=== PATIENT | female | born 1965 | race Caucasian/White ===

== ENCOUNTER → 2020-01-06 | Outpatient (CLI) | payer OTHER, SELFPAY ==
[2020-01-09 21:05] LABS: HPV Reflexed? NOT INDICATED
== END | disposition home or self-care (01) ==
LOC: LABSPEC 12:32
PROVIDERS: PCP Family Medicine; Referring Provider Nurse Practitioner; Visit Provider Nurse Practitioner
DX: Z01.419 Encounter for gynecological examination (general) (routine) without abnormal findings (principal)
CPT/HCPCS: 88175; G0145

== ENCOUNTER → 2020-01-13 10:14 | Outpatient (CLI) | payer SELFPAY ==
--- NOTE | 2020-01-13 10:20 | BI_ITS ---
MAMMOGRAPHY - UNILATERAL SCREENING: LEFT BREAST REASON FOR EXAM: Female, 54 years old. Routine annual screening examination (unilateral). PERTINENT HISTORY: Personal history of breast cancer. Prior right mastectomy. TECHNIQUE: Digital unilateral breast negro (3D mammographic acquisition) in the CC and MLO projections. 2-D mediolateral oblique (MLO) and craniocaudad (CC) views of both breasts were obtained. CAD: Full Field Digital Mammography with Computer Added Detection was performed. COMPARISON: Comparison is made with prior examination dated November 28, 2014. FINDINGS: Breast Composition: There are scattered areas of fibroglandular density. The previously seen 1 cm nodule in the upper outer aspect of the left breast as decreased in size. It presently measures 0.7 cm. A tissue clip marker is seen within it. No other significant abnormalities are identified. BI/SCREEN MAMM (CAD) W/NEGRO UNI L IMPRESSION: Status post right mastectomy. Interval decrease in size of the previously seen nodular density in the upper outer aspect of the left breast. A tissue clip marker is seen within. ASSESSMENT CATEGORY: BIRADS Category 0: Incomplete. Need additional imaging evaluation. A letter regarding these results will be sent to the patient by the facility within 30 days. Approximately 10% of breast cancers are not detected by mammography. A normal mammogram should not delay biopsy of a clinically suspicious abnormality. [id number] Electronically Signed: Durga Rubi, at 12:27 EDT , Service support ,
== END ==
PROVIDERS: PCP Nurse Practitioner; Referring Provider Nurse Practitioner; Visit Provider Nurse Practitioner
DX: Z12.31 Encounter for screening mammogram for malignant neoplasm of breast (principal)
CPT/HCPCS: 77063; 77067

== ENCOUNTER → 2020-01-23 07:53 | Outpatient (CLI) | payer SELFPAY ==
--- NOTE | 2020-01-23 08:30 | PET_ITS ---
EXAMINATION: FDG PET CT INDICATIONS: A 54-year-old female with reported history of carcinoma of the breast presenting for restaging examination. COMPARISON EXAMINATION: Conventional mammogram report dated 01/13/20. INDEX LESION SIZE SUV INTERPRETATION Mediastinal structures-aorticopulmonary window 30.1 mm largest (frame 204) 6.8 (max) Fulfills quantitative criteria for viable neoplasm Bilateral anterior neck 14.2 mm largest (frame 227) 4.7 (max) Fulfills quantitative criteria for viable neoplasm Appendicular, axial skeletal structures 4.3 (max) Fulfills quantitative criteria for viable osseous neoplasm TECHNIQUE: Following the intravenous administration of 17.2 mCi of F-18 deoxyglucose via the left antecubital fossa, multiplanar image acquisitions of the neck, chest, abdomen and pelvis to level of mid thigh, obtained at one hour post radiopharmaceutical administration contemporaneously interpreted with the current CT of the neck, chest, abdomen and pelvis to level of mid thigh, dated 01/23/20 via coregistration and conventional mammogram report dated 01/13/20 reveal: SERUM GLUCOSE LEVEL: 113 mg/dl. HEIGHT: 60 inches. WEIGHT: 147 lbs. FINDINGS: 1. Multifocal increased glucose metabolism is identified in the superior, carinal level mediastinum and region of the aorticopulmonary window. The calculated maximum standard uptake value is 6.8. The maximal axial diameter of the largest individual hypermetabolic soft tissue density on review of CT of the chest dated 01/23/20 is 30.1 mm (transverse). 2. Enhanced fluorine-labeled glucose uptake is defined in the right anterior neck involving level , left anterior neck involving level IV. The calculated maximum standard uptake value is 4.7. The maximal axial diameter of the largest individual hypermetabolic soft tissue density on review of CT of the neck-chest dated 01/23/20 is 14.2 mm (AP). 3. Innumerable foci of increased FDG concentration are noted in the appendicular and axial skeletal structures, too many to individually articulate registering a calculated maximum standard uptake value of 4.3. 4. Normal physiologic distribution of the radiopharmaceutical is apparent in the hepatic (2.8) and splenic parenchyma, both renal units, bladder and visualized intestinal tract. There is uniform distribution of the radiopharmaceutical concentration defined in the visualized cerebellar hemispheres and cerebral cortical structures. Diffuse intestinal tract activity is noted throughout all four quadrants of the abdominal-pelvic retroperitoneum and mesentery consistent with normal physiologic distribution of the radiopharmaceutical. Pertinent CT findings are as follows. CHEST: Atherosclerotic calcification is defined in the thoracic aorta without evidence of dilatation, aneurysm formation. Coronary arterial calcification is observed. The right breast is surgically absent. Bilateral subcentimeter axillary soft tissue densities are non-glucose avid. There are no parenchymal densities-nodules defined in the right and left hemithorax manifesting quantitatively significant increased FDG concentration. ABDOMEN AND PELVIS: There is fatty metamorphosis demonstrated in the hepatic parenchyma. Right and left inguinal soft tissue densities are ametabolic. The uterus is prominent in size without evidence of quantitatively significant increased FDG distribution. Colonic diverticulosis is identified. SKELETAL: Degenerative changes defined in the cervical, thoracic and lumbar spine demonstrate no evidence of glucose hypermetabolism. PET/PET/CT Tumor Base -Thigh Init IMPRESSION: 1. 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 2. Increased fluorine-labeled glucose uptake identified in the mediastinal structures fulfills quantitative criteria for viable neoplasm. 3. Enhanced tracer concentration observed in the bilateral anterior neck fulfills quantitative criteria for viable metastatic disease. 4. Facilitated FDG uptake is noted in the appendicular and axial skeletal structures fulfills quantitative criteria for viable osseous metastasis. (Arturo sherman al, Clinical Nuclear Medicine 29:161, 2004). Electronic Signature Juan Antonio Meeks D.O. Electronically Signed: Juan Antonio Meeks DO at 23:18 EDT Tel , Service support ,
== END ==
PROVIDERS: PCP Nurse Practitioner; Referring Provider Nurse Practitioner; Visit Provider Nurse Practitioner
DX: C50.919 Malignant neoplasm of unspecified site of unspecified female breast (principal)
CPT/HCPCS: 78815; A9552

== ENCOUNTER → 2020-05-15 14:50 | Outpatient (CLI) | payer SELFPAY ==
--- NOTE | 2020-05-15 15:00 | PET_ITS ---
EXAMINATION: FDG PET-CT INDICATIONS: A 55-year-old female with history of carcinoma of the breast presenting for restaging examination. COMPARISON EXAMINATION: FDG PET study dated 01/23/2020 INDEX LESION SIZE SUV INTERPRETATION PERSISTENT and NEW: mediastinal structures 32.2-mm (largest) (frame 186) comp. to 30.1-mm (01/23/20) 15.5 (max) comp. to 6.8 (01/23/20) Fulfills quantitative criteria for viable neoplasm, interim metabolic progression PERSISTENT and NEW: bilateral-lateral and anterior neck 21.3-mm (largest) (frame 219) comp. to 14.2-mm (01/23/20) 14.7 (max) comp. to 4.7 (01/23/20) Fulfills quantitative criteria for viable neoplasm, interim metabolic progression PERSISTENT and NEW: appendicular, axial skeletal structures, skull base 17.4 (max) comp. to 4.3 (01/23/20) Fulfills quantitative criteria for viable neoplasm, interim metabolic progression NEW: left and right lobe hepatic parenchyma (n=multiple) 14.8-mm (largest) (frame 161) 8.4 (max) ratio > 2.0 Fulfills quantitative criteria for viable neoplasm, interim metabolic progression TECHNIQUE: Following the intravenous administration of 14.8 mCi of F-18 deoxyglucose via the left antecubital fossa, multiplanar image acquisitions of the neck, chest, abdomen and pelvis to level of mid thigh, obtained at one hour post radiopharmaceutical administration contemporaneously interpreted with the current CT of the neck, chest, abdomen and pelvis, to level of mid thigh, dated 05/15/2020 via coregistration and FDG PET study dated 01/23/2020 reveals: BLOOD GLUCOSE LEVEL:?? 96 mg/dl?HEIGHT:?60 inches?WEIGHT: 128 lbs. FINDINGS: 1. Redefined and newly apparent increased glucose metabolism is multifocally apparent in the superior-subcarinal mediastinum generating a current calculated maximal standard uptake value of 15.5, compared to 6.8 defined on the FDG PET study dated 01/23/2020. The maximal axial diameter of the largest individual hypermetabolic soft tissue density on review of CT of the chest dated 05/15/2020 is 32.2-mm (transverse). 2. Increased glucose concentration is redemonstrated and newly apparent in the bilateral anterior and lateral neck, both lobes of the thyroid gland generating a current calculated maximal standard uptake value of 14.1, compared to 4.7 defined on the previous FDG PET study. The maximal axial diameter of the individual metabolic, morphologic abnormality on review of CT of the chest dated 05/15/2020 is 21.3-mm (AP). 3. Redemonstrated and multiple new foci of increased labeled GLUCOSE uptake are manifest in the appendicular and axial skeletal structures, skull base, too many to individually articulate, rendering a calculated maximal standard uptake value of 17.4, compared to 4.3 reported on the previous examination. 4. Multiple new foci of increased FDG distribution are manifest in the left and right lobe of the hepatic (2.0/2.8) parenchyma, too many to individually articulate, generating a calculated maximal standard uptake value of 8.4, with a lesion to liver background ratio greater than 2.0. The maximal axial diameter of the largest individual metabolic abnormality is 14.8-mm (AP). 5. Normal physiologic distribution of the radiopharmaceutical is apparent in the splenic parenchyma, both renal units, bladder and visualized intestinal tract. The visualized portion of the cerebral cortex demonstrate symmetric and preserved glucose metabolism. Previously defined morphologic-anatomic changes noted on review of CT of the neck, chest, abdomen and pelvis on the FDG PET-CT report dated 01/23/2020, are essentially unchanged on the current examination. PET/PET/CT Tumor Base -Thigh Subs IMPRESSION: 1. 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 2. Increased glucose concentration redefined and newly apparent in the mediastinal structures fulfills quantitative criteria for viable metastatic disease. 3. Persistent and newly visualized bilateral-lateral and anterior neck hypermetabolic foci fulfill quantitative criteria for viable metastatic involvement. 4. Redemonstrated and newly apparent appendicular and axial skeletal hypermetabolic abnormalities fulfill quantitative criteria for skeletal metastasis. (Arturo et al, Clinical Nuclear Medicine, 29:161, 2004). 5. There is interim development of newly visualized left and right lobe hepatic parenchymal metastatic malignancy. (Zachery et al, Archives of Surgery, 133:[id number] 1997). 6. Overall, compared to the prior FDG PET study dated 01/23/2020, there is interim metabolic progression of defined viable neoplastic disease. Electronic Signature Juan Antonio Meeks D.O. Accurate Quantification of SUVs for this report are calculated using the exclusive [employer]. Electronically Signed: Juan Antonio Meeks DO at 22:41 EDT Tel , Service support ,
== END ==
PROVIDERS: PCP Nurse Practitioner; Referring Provider Nurse Practitioner; Visit Provider Nurse Practitioner
DX: C50.919 Malignant neoplasm of unspecified site of unspecified female breast (principal); C78.7 Secondary malignant neoplasm of liver and intrahepatic bile duct; C79.51 Secondary malignant neoplasm of bone
CPT/HCPCS: 78815; A9552